=== PATIENT | male | born 1950 | race African-American/Black ===

== ENCOUNTER 2024-01-17 21:25 | Inpatient (IN) | payer MEDICARE, MEDICAID ==
[~2024-01-17] VITALS: Ht 152.4 cm; Wt 70.7 kg
[2024-01-17 22:48] LABS: BASOPHILS % (AUTO) 0.2 % (0.0-2.0); HEMATOCRIT 38.9 % (41-53); HEMOGLOBIN 12.7 g/dL (13.5-17.5); LYMPHOCYTES # (AUTO) 1.9 K/uL (1.0-4.8); MEAN CORPUSCULAR HEMOGLOBIN 29.6 pg (26.0-34.0); MEAN CORPUSCULAR HGB CONC 32.7 G/dL (31.0-37.0); MEAN CORPUSCULAR VOLUME 91 fL (80-100); MONOCYTES # (AUTO) 0.7 K/uL (0.1-1.0); MONOCYTES % (AUTO) 8.2 % (2.0-9.0); NEUTROPHILS % (AUTO) 67.6 % (40.0-70.0); PLATELET COUNT (AUTO) 319 K/uL (150-450); RED BLOOD CELL COUNT(AUTO) 4.29 MIL/uL (4.50-5.90); RED CELL DISTRIBUTION WIDTH 13.8 % (11.5-14.5); WHITE BLOOD COUNT (AUTO) 8.8 K/uL (4.5-11.0)
[2024-01-17 23:08] LABS: ANION GAP 11 mmol/L (8-16); CALCIUM, TOTAL 8.9 mg/dL (8.8-10.5); CARBON DIOXIDE 27 mmol/L (22-29); CHLORIDE 102 mmol/L (98-107); CREATININE 1.02 mg/dL (0.60-1.30); GLOMERULAR FILTR. RATE CALC > 60 mL/min (>60); GLUCOSE,RANDOM 145 mg/dL (70-110); POTASSIUM 5.1 mmol/L (3.5-5.1); SODIUM SERUM 140 mmol/L (136-145); UREA NITROGEN, BLOOD 18 mg/dL (7-18)
[2024-01-17 23:21] LABS: ALCOHOL, BLOOD (SERUM) < 3 mg/dL (0-10)
[2024-01-18 05:33] LABS: COVID AG,FIA SOURCE NASAL SWAB
[2024-01-18 05:52] LABS: SARS-COV2 (COVID) ANTIGEN,FIA Negative (Negative)
[2024-01-18 08:23] LABS: APPEARANCE,URINE CLEAR (CLEAR); BILIRUBIN,URINE NEGATIVE (NEGATIVE); COLOR,URINE LIGHT YELLOW (YELLOW); GLUCOSE, URINE (UA) NEGATIVE (NEGATIVE); KETONES,URINE NEGATIVE (NEGATIVE); LEUKOCYTE ESTERASE ,URINE NEGATIVE (NEGATIVE); NITRATE,URINE NEGATIVE (NEGATIVE); OCCULT BLOOD,URINE NEGATIVE (NEGATIVE); PROTEIN,URINE TRACE mg/dL (NEGATIVE); SPECIFIC GRAVITIY, URINE 1.019 (1.003-1.030); UROBILINOGEN,URINE <=1.0 mg/dL (<=1.0)
[2024-01-18 08:32] LABS: ALCOHOL, URINE DRUG SCREEN NEGATIVE (NEGATIVE); AMPHET/METH SCREEN,URINE NEGATIVE (NEGATIVE); BARBITURATE SCREEN, URINE NEGATIVE (NEGATIVE); BENZODIAZEPINES SCREEN,URINE NEGATIVE (NEGATIVE); CANNABINOID SCREEN,URINE NEGATIVE (NEGATIVE); COCAINE SCREEN,URINE NEGATIVE (NEGATIVE); METHADONE SCREEN, URINE NEGATIVE (NEGATIVE); OPIATE SCREEN,URINE NEGATIVE (NEGATIVE); PHENCYCLIDINE SCREEN,URINE NEGATIVE (NEGATIVE)
[2024-01-18] MEDS: LORazepam 2 MG TABLET PO PRN (16:12)
[2024-01-18] MEDS: HALOPERIDOL 5 MG TABLET PO PRN (16:12)
[2024-01-18 19:52] VITALS: O2SAT 98
[2024-01-19] VITALS: BP 114/57; PULSE 58; RESP 18; TEMP 98.1; O2SAT 100
[2024-01-19 09:29] VITALS: BP 138/73; PULSE 72; RESP 19; TEMP 97; O2SAT 99
[2024-01-19] MEDS ORDERED: CHLO100T36 PO (16:54)
[2024-01-19] MEDS ORDERED: CHLO50TA53 PO (16:54)
[2024-01-19] MEDS ORDERED: DOXA1TAB2 PO (16:55)
[2024-01-19] MEDS: ChlorproMAZINE HCL 100 MG TABLET PO SCH (20:51)
[2024-01-19 21:04] VITALS: BP 142/72; PULSE 74; RESP 18; TEMP 98.1; O2SAT 99
[2024-01-20 09:37] VITALS: BP 131/76; PULSE 85; TEMP 97.3
[2024-01-20] MEDS: ChlorproMAZINE HCL 50 MG TABLET PO SCH (09:44)
[2024-01-20] MEDS: ZOLPIDEM TARTRATE 10 MG TABLET PO PRN (21:17)
[2024-01-20 22:13] VITALS: BP 139/74; PULSE 84; RESP 18; O2SAT 98
[2024-01-21] MEDS: ASPIRIN 81 MG DR TABLET PO SCH (10:49)
[2024-01-21] MEDS: LISINOPRIL 10 MG TABLET PO SCH (10:49)
[2024-01-21] MEDS: PEG 400/HYPROMELLOSE/GLYCERIN 15 ML OPHTHALMIC SOLUTION OU PRN (11:29)
[2024-01-21 17:46] LABS: GLUCOMETER DEV NAME(LOC) 3E.I 2; GLUCOSE,POINT OF CARE 190 MG/DL (70-110)
[2024-01-21 17:50] VITALS: BP 147/76; PULSE 69; RESP 18; TEMP 97.3; O2SAT 96
[2024-01-21 20:00] VITALS: BP 105/60; PULSE 79; RESP 18; TEMP 97.8; O2SAT 97
[2024-01-21] MEDS: SIMVASTATIN 20 MG TABLET PO SCH (22:14)
[2024-01-22] MEDS: MetFORMIN HCL 500 MG TABLET PO SCH (06:53)
[2024-01-22 06:55] LABS: GLUCOMETER DEV NAME(LOC) 3E.I 2; GLUCOSE,POINT OF CARE 166 MG/DL (70-110)
[2024-01-22] MEDS: ALFUZOSIN HCL 10 MG ER TABLET PO SCH (08:15)
[2024-01-22 10:40] VITALS: BP 160/80; PULSE 75; RESP 18; TEMP 97.3; O2SAT 98
[2024-01-22 17:31] LABS: GLUCOMETER DEV NAME(LOC) 3E.I 2; GLUCOSE,POINT OF CARE 236 MG/DL (70-110)
[2024-01-22 21:30] VITALS: BP 136/79; PULSE 83; RESP 18; TEMP 97.5; O2SAT 95
[2024-01-23 06:10] LABS: GLUCOMETER DEV NAME(LOC) 3E.I 2; GLUCOSE,POINT OF CARE 209 MG/DL (70-110)
[2024-01-23 11:20] LABS: GLUCOMETER DEV NAME(LOC) 3E.I 2; GLUCOSE,POINT OF CARE 269 MG/DL (70-110)
[2024-01-23 11:29] VITALS: BP 134/80; PULSE 80; RESP 18; TEMP 97.4; O2SAT 98
[2024-01-23 16:56] LABS: GLUCOMETER DEV NAME(LOC) 3E.I 2; GLUCOSE,POINT OF CARE 227 MG/DL (70-110)
[2024-01-23 22:36] VITALS: BP 122/58; PULSE 84; RESP 18; TEMP 98.2; O2SAT 97
[2024-01-24 05:36] LABS: GLUCOMETER DEV NAME(LOC) 3E.I 2; GLUCOSE,POINT OF CARE 181 MG/DL (70-110)
[2024-01-24 12:06] VITALS: BP 147/88; PULSE 88; RESP 18; TEMP 98.2
[2024-01-24 17:40] LABS: GLUCOMETER DEV NAME(LOC) 3E.I 2; GLUCOSE,POINT OF CARE 228 MG/DL (70-110)
[2024-01-24] MEDS: ETHYL ALCOHOL 62% ANTISEPTIC NASAL SANITIZER 0.6 ML AMPUL NASAL SCH (21:48)
[2024-01-24 22:27] VITALS: BP 99/52; PULSE 76; RESP 18; TEMP 97; O2SAT 97
[2024-01-25 07:05] LABS: GLUCOMETER DEV NAME(LOC) 3E.I 2; GLUCOSE,POINT OF CARE 141 MG/DL (70-110)
[2024-01-25 10:37] VITALS: BP 128/61; PULSE 74; RESP 18; TEMP 97.9; O2SAT 100
[2024-01-25 17:20] LABS: GLUCOMETER DEV NAME(LOC) 3E.I 2; GLUCOSE,POINT OF CARE 221 MG/DL (70-110)
[2024-01-25 20:31] VITALS: BP 11/69; PULSE 86; RESP 17; TEMP 97.6; O2SAT 97
[2024-01-26 06:45] LABS: GLUCOMETER DEV NAME(LOC) 3E.I 2; GLUCOSE,POINT OF CARE 198 MG/DL (70-110)
[2024-01-26 10:10] VITALS: BP 147/76; PULSE 90; RESP 16; TEMP 97.3; O2SAT 100
[2024-01-26 17:16] LABS: GLUCOMETER DEV NAME(LOC) 3E.I 2; GLUCOSE,POINT OF CARE 153 MG/DL (70-110)
[2024-01-26 21:50] VITALS: BP 153/75; PULSE 89; RESP 18; TEMP 96.5; O2SAT 97
[2024-01-27 07:16] LABS: GLUCOMETER DEV NAME(LOC) 3E.I 2; GLUCOSE,POINT OF CARE 153 MG/DL (70-110)
[2024-01-27 09:43] VITALS: BP 153/75; PULSE 82; RESP 18; TEMP 97.6; O2SAT 99
[2024-01-27 09:53] LABS: HEMOGLOBIN A1C 7.2 % (3.8-5.6)
[2024-01-27 09:56] LABS: CHOL/HDL RATIO 2.7 (4.2-7.3)
[2024-01-27 17:36] LABS: GLUCOMETER DEV NAME(LOC) 3E.I 2; GLUCOSE,POINT OF CARE 194 MG/DL (70-110)
[2024-01-27 22:00] VITALS: BP 143/73; PULSE 82; RESP 19; TEMP 97.1; O2SAT 98
[2024-01-28 06:46] LABS: GLUCOMETER DEV NAME(LOC) 3E.I 2; GLUCOSE,POINT OF CARE 169 MG/DL (70-110)
[2024-01-28 09:23] VITALS: BP 128/63; PULSE 75; RESP 18; TEMP 97.6; O2SAT 99
[2024-01-28 17:41] LABS: GLUCOMETER DEV NAME(LOC) 3E.I 2; GLUCOSE,POINT OF CARE 166 MG/DL (70-110)
[2024-01-28 21:46] VITALS: BP 139/76; PULSE 89; RESP 18; TEMP 97.9; O2SAT 99
[2024-01-29 06:21] LABS: GLUCOMETER DEV NAME(LOC) 3E.I 2; GLUCOSE,POINT OF CARE 168 MG/DL (70-110)
[2024-01-29] MEDS ORDERED: ONDANSETRON 4 MG TABLET PO PRN (09:15)
[2024-01-29] MEDS ORDERED: PETROLATUM,WHITE 28 GM JELLY TP PRN (09:15)
[2024-01-29] MEDS ORDERED: ALBUTEROL SULFATE HFA 90 MCG/PUFF 8 GM INHALER IH PRN (09:15)
[2024-01-29] MEDS ORDERED: NICOTINE 14 MG/24 HOUR PATCH TD PRN (09:15)
[2024-01-29] MEDS ORDERED: LOPERAMIDE HCL 2 MG CAPSULE PO PRN (09:15)
[2024-01-29] MEDS ORDERED: CloNIDine HCL 0.1 MG TABLET PO PRN (09:15)
[2024-01-29] MEDS ORDERED: GuaiFENesin/D-METHORPHAN [SUGAR-FREE] 200-20MG/10 ML SYRUP UDCUP PO PRN (09:15)
[2024-01-29 09:39] VITALS: BP 130/80; PULSE 103; RESP 16; TEMP 97.8; O2SAT 98
[2024-01-29] MEDS: MAGNESIUM HYDROXIDE SUSPENSION 30 ML UDCUP PO PRN (09:40)
[2024-01-29 13:31] VITALS: BP 102/65; PULSE 85; RESP 18; TEMP 97.6; O2SAT 97
[2024-01-29] MEDS: ACETAMINOPHEN 325 MG TABLET PO PRN (13:31)
[2024-01-29 17:11] LABS: GLUCOMETER DEV NAME(LOC) 3E.I 2; GLUCOSE,POINT OF CARE 299 MG/DL (70-110)
[2024-01-29 22:27] VITALS: BP 149/63; PULSE 80; RESP 20; TEMP 97.2; O2SAT 98
[2024-01-30 06:06] LABS: GLUCOMETER DEV NAME(LOC) 3E.I 2; GLUCOSE,POINT OF CARE 169 MG/DL (70-110)
[2024-01-30 08:03] LABS: BASOPHILS % (AUTO) 1.3 % (0.0-2.0); EOSINOPHILS % (AUTO) 3.8 % (1.0-6.0); HEMATOCRIT 36.2 % (41-53); LYMPHOCYTES # (AUTO) 1.7 K/uL (1.0-4.8); MEAN CORPUSCULAR HEMOGLOBIN 29.8 pg (26.0-34.0); MEAN CORPUSCULAR HGB CONC 33.2 G/dL (31.0-37.0); MEAN CORPUSCULAR VOLUME 90 fL (80-100); MONOCYTES # (AUTO) 0.5 K/uL (0.1-1.0); MONOCYTES % (AUTO) 7.6 % (2.0-9.0); NEUTROPHILS # (AUTO) 4.4 K/uL (1.8-7.7); NEUTROPHILS % (AUTO) 63.3 % (40.0-70.0); PLATELET COUNT (AUTO) 300 K/uL (150-450); RED BLOOD CELL COUNT(AUTO) 4.04 MIL/uL (4.50-5.90); RED CELL DISTRIBUTION WIDTH 13.3 % (11.5-14.5)
[2024-01-30 08:29] LABS: HEMOGLOBIN A1C 7.5 % (3.8-5.6)
[2024-01-30 08:40] VITALS: BP 139/69; PULSE 75; RESP 17; TEMP 97.9; O2SAT 100
[2024-01-30 08:51] LABS: ALANINE AMINOTRANSFERASE 203 U/L (12-78); ALBUMIN 3.2 g/dL (3.4-5.0); ALKALINE PHOSPHATASE 145 U/L (46-116); ANION GAP 6 mmol/L (8-16); ASPARTATE AMINOTRANSFERASE 42 U/L (15-37); BILIRUBIN,TOTAL 0.3 mg/dL (0.1-1.0); CARBON DIOXIDE 29 mmol/L (22-29); CHLORIDE 101 mmol/L (98-107); CHOL/HDL RATIO 2.4 (4.2-7.3); CHOLESTEROL 154 mg/dL (131-200); CREATININE 0.91 mg/dL (0.60-1.30); GLOMERULAR FILTR. RATE CALC > 60 mL/min (>60); GLUCOSE,RANDOM 219 mg/dL (70-110); HDL CHOLESTEROL 65 mg/dL (40-60); LDL CHOL (CALC.) 83 mg/dL (0-130); POTASSIUM 4.1 mmol/L (3.5-5.1); SODIUM SERUM 136 mmol/L (136-145); THYROID STIMULATING HORMONE 2.71 uIU/mL (0.36-3.74); TOTAL PROTEIN, SERUM 7.4 g/dL (6.4-8.2); TRIGLYCERIDES 29 mg/dL (15-150); UREA NITROGEN, BLOOD 17 mg/dL (7-18)
[2024-01-30 17:05] LABS: GLUCOMETER DEV NAME(LOC) 3E.I 2; GLUCOSE,POINT OF CARE 192 MG/DL (70-110)
[2024-01-30 20:08] VITALS: BP 142/76; PULSE 95; RESP 17; TEMP 97.8; O2SAT 97
[2024-01-31 06:26] LABS: GLUCOMETER DEV NAME(LOC) 3E.I 2; GLUCOSE,POINT OF CARE 179 MG/DL (70-110)
[2024-01-31 10:14] VITALS: BP 168/83; PULSE 89; RESP 18; TEMP 97.9; O2SAT 99
[2024-01-31 12:00] LABS: GLUCOMETER DEV NAME(LOC) 3E.I 2; GLUCOSE,POINT OF CARE 204 MG/DL (70-110)
[2024-01-31 15:53] VITALS: BP 149/79; PULSE 93; RESP 18; TEMP 98; O2SAT 99
[2024-01-31] MEDS: IBUPROFEN 400 MG TABLET PO PRN (15:53)
[2024-01-31 17:01] LABS: GLUCOMETER DEV NAME(LOC) 3E.I 2; GLUCOSE,POINT OF CARE 271 MG/DL (70-110)
[2024-01-31 20:18] VITALS: BP 118/68; PULSE 78; RESP 17; TEMP 98.1; O2SAT 98
[2024-02-01 06:31] LABS: GLUCOMETER DEV NAME(LOC) 3E.I 2; GLUCOSE,POINT OF CARE 121 MG/DL (70-110)
[2024-02-01 08:50] VITALS: BP 112/66; PULSE 74; RESP 18; TEMP 97.2; O2SAT 99
[2024-02-01 19:31] LABS: GLUCOMETER DEV NAME(LOC) 3E.I 2; GLUCOSE,POINT OF CARE 208 MG/DL (70-110)
[2024-02-01 21:09] VITALS: BP 102/62; PULSE 84; RESP 16; TEMP 97.3; O2SAT 99
[2024-02-02 06:01] LABS: GLUCOMETER DEV NAME(LOC) 3E.I 2; GLUCOSE,POINT OF CARE 144 MG/DL (70-110)
[2024-02-02 09:12] VITALS: BP 137/82; PULSE 86; RESP 18; TEMP 97.6; O2SAT 97
[2024-02-02] MEDS: DOCUSATE SODIUM 100 MG CAPSULE PO PRN (15:55)
[2024-02-02 17:25] LABS: GLUCOMETER DEV NAME(LOC) 3E.I 2; GLUCOSE,POINT OF CARE 240 MG/DL (70-110)
[2024-02-02 22:21] VITALS: BP 101/61; PULSE 56; RESP 18; TEMP 97.8; O2SAT 96
[2024-02-03 06:50] LABS: GLUCOMETER DEV NAME(LOC) 3E.I 2; GLUCOSE,POINT OF CARE 142 MG/DL (70-110)
[2024-02-03 08:00] VITALS: BP 113/61; PULSE 79; RESP 18; TEMP 96.9
[2024-02-03 17:00] LABS: GLUCOMETER DEV NAME(LOC) 3E.I 2; GLUCOSE,POINT OF CARE 238 MG/DL (70-110)
[2024-02-03 20:56] VITALS: BP 143/81; PULSE 89; RESP 18; TEMP 97; O2SAT 89
[2024-02-04 06:11] LABS: GLUCOMETER DEV NAME(LOC) 3E.I 2; GLUCOSE,POINT OF CARE 175 MG/DL (70-110)
[2024-02-04 09:26] VITALS: BP 156/75; PULSE 66; RESP 16; TEMP 97.9; O2SAT 99
[2024-02-04] MEDS: MAG HYDROX/ALUMINUM HYD/SIMETH ES 30 ML SUSPENSION UDCUP PO PRN (15:30)
[2024-02-04 16:31] LABS: GLUCOMETER DEV NAME(LOC) 3E.I 2; GLUCOSE,POINT OF CARE 163 MG/DL (70-110)
[2024-02-04 21:04] VITALS: BP 132/83; PULSE 84; RESP 18; TEMP 97.6
[2024-02-05 06:26] LABS: GLUCOMETER DEV NAME(LOC) 3E.I 2; GLUCOSE,POINT OF CARE 150 MG/DL (70-110)
[2024-02-05 08:52] VITALS: BP 124/66; PULSE 68; RESP 17; TEMP 97.7; O2SAT 98
[2024-02-05 17:26] LABS: GLUCOMETER DEV NAME(LOC) 3E.I 2; GLUCOSE,POINT OF CARE 304 MG/DL (70-110)
[2024-02-05 20:50] LABS: GLUCOMETER DEV NAME(LOC) 3E.I 2; GLUCOSE,POINT OF CARE 169 MG/DL (70-110)
[2024-02-05 21:16] VITALS: BP 110/57; PULSE 71; RESP 18; TEMP 97.4; O2SAT 98
[2024-02-06 08:32] VITALS: BP 148/78; PULSE 75; RESP 18; TEMP 96.9; O2SAT 98
[2024-02-06 17:30] LABS: GLUCOMETER DEV NAME(LOC) 3E.I 2; GLUCOSE,POINT OF CARE 317 MG/DL (70-110)
[2024-02-06 22:24] VITALS: BP 129/71; PULSE 85; RESP 18; TEMP 98; O2SAT 95
[2024-02-07 06:01] LABS: GLUCOMETER DEV NAME(LOC) 3E.I 2; GLUCOSE,POINT OF CARE 158 MG/DL (70-110)
[2024-02-07 09:48] VITALS: BP 126/69; PULSE 80; RESP 18; TEMP 98.1; O2SAT 98
[2024-02-07 17:15] LABS: GLUCOMETER DEV NAME(LOC) 3E.I 2; GLUCOSE,POINT OF CARE 211 MG/DL (70-110)
[2024-02-07 21:23] VITALS: BP 147/87; PULSE 79; RESP 18; TEMP 98.2; O2SAT 96
[2024-02-08 06:01] LABS: GLUCOMETER DEV NAME(LOC) 3E.I 2; GLUCOSE,POINT OF CARE 161 MG/DL (70-110)
[2024-02-08 10:29] VITALS: BP 138/80; PULSE 77; RESP 18; TEMP 98; O2SAT 98
[2024-02-08 10:48] VITALS: BP 137/80; PULSE 77; RESP 17; TEMP 98.1; O2SAT 99
[2024-02-08 16:26] LABS: GLUCOMETER DEV NAME(LOC) 3E.I 2; GLUCOSE,POINT OF CARE 241 MG/DL (70-110)
[2024-02-08 21:22] VITALS: BP 100/60; PULSE 86; RESP 18; TEMP 98.1; O2SAT 98
[2024-02-09 06:25] LABS: GLUCOMETER DEV NAME(LOC) 3E.I 2; GLUCOSE,POINT OF CARE 164 MG/DL (70-110)
[2024-02-09 08:22] VITALS: BP 120/64; PULSE 61; RESP 18; TEMP 98.3; O2SAT 100
[2024-02-09 17:46] LABS: GLUCOMETER DEV NAME(LOC) 3E.I 2; GLUCOSE,POINT OF CARE 246 MG/DL (70-110)
[2024-02-09 20:51] LABS: GLUCOMETER DEV NAME(LOC) 3E.I 2; GLUCOSE,POINT OF CARE 176 MG/DL (70-110)
[2024-02-09 21:51] VITALS: BP 142/69; PULSE 80; RESP 18; TEMP 98; O2SAT 96
[2024-02-10 05:45] LABS: GLUCOMETER DEV NAME(LOC) 3E.I 2; GLUCOSE,POINT OF CARE 161 MG/DL (70-110)
[2024-02-10 10:16] VITALS: BP 140/77; PULSE 71; RESP 19; TEMP 98.1; O2SAT 100
[2024-02-10 18:16] LABS: GLUCOMETER DEV NAME(LOC) 3E.I 2; GLUCOSE,POINT OF CARE 249 MG/DL (70-110)
[2024-02-10 22:00] VITALS: BP 147/79; PULSE 75; RESP 17; TEMP 97.1; O2SAT 98
[2024-02-11 10:33] VITALS: BP 151/70; PULSE 75; RESP 18; TEMP 98.6; O2SAT 100
[2024-02-11 16:56] LABS: GLUCOMETER DEV NAME(LOC) 3E.I 2; GLUCOSE,POINT OF CARE 193 MG/DL (70-110)
[2024-02-11 20:50] LABS: GLUCOMETER DEV NAME(LOC) 3E.I 2; GLUCOSE,POINT OF CARE 232 MG/DL (70-110)
[2024-02-11 22:00] VITALS: BP 154/83; PULSE 18; RESP 18; TEMP 97.6; O2SAT 98
[2024-02-12 06:11] LABS: GLUCOMETER DEV NAME(LOC) 3E.I 2; GLUCOSE,POINT OF CARE 173 MG/DL (70-110)
[2024-02-12 09:29] VITALS: BP 123/67; PULSE 78; RESP 19; TEMP 97.5; O2SAT 100
[2024-02-12 17:41] LABS: GLUCOMETER DEV NAME(LOC) 3E.I 2; GLUCOSE,POINT OF CARE 220 MG/DL (70-110)
[2024-02-12 21:16] LABS: GLUCOMETER DEV NAME(LOC) 3E.I 2; GLUCOSE,POINT OF CARE 259 MG/DL (70-110)
[2024-02-12 22:13] VITALS: BP 108/57; PULSE 73; RESP 18; TEMP 97.6; O2SAT 100
[2024-02-13 06:15] LABS: GLUCOMETER DEV NAME(LOC) 3E.I 2; GLUCOSE,POINT OF CARE 157 MG/DL (70-110)
[2024-02-13 08:00] VITALS: BP 121/64; PULSE 77; RESP 18; TEMP 97.2; O2SAT 97
[2024-02-13 16:41] LABS: GLUCOMETER DEV NAME(LOC) 3E.I 2; GLUCOSE,POINT OF CARE 138 MG/DL (70-110)
[2024-02-13 20:44] VITALS: BP 122/71; PULSE 73; RESP 18; TEMP 98.3; O2SAT 98
[2024-02-14 06:16] LABS: GLUCOMETER DEV NAME(LOC) 3E.I 2; GLUCOSE,POINT OF CARE 147 MG/DL (70-110)
[2024-02-14 08:00] VITALS: BP 146/69; PULSE 79; RESP 18; TEMP 96.4
[2024-02-14 17:30] LABS: GLUCOMETER DEV NAME(LOC) 3E.I 2; GLUCOSE,POINT OF CARE 244 MG/DL (70-110)
[2024-02-14 20:45] VITALS: BP 114/55; PULSE 74; RESP 18; TEMP 97.1; O2SAT 98
[2024-02-15 05:46] LABS: GLUCOMETER DEV NAME(LOC) 3E.I 2; GLUCOSE,POINT OF CARE 156 MG/DL (70-110)
[2024-02-15 09:09] VITALS: BP 128/61; PULSE 86; RESP 18; TEMP 98; O2SAT 98
[2024-02-15 17:51] LABS: GLUCOMETER DEV NAME(LOC) 3E.I 2; GLUCOSE,POINT OF CARE 209 MG/DL (70-110)
[2024-02-15 21:18] LABS: APPEARANCE,URINE CLEAR (CLEAR); BILIRUBIN,URINE NEGATIVE (NEGATIVE); COLOR,URINE LIGHT YELLOW (YELLOW); GLUCOSE, URINE (UA) 300-500 mg/dL (NEGATIVE); KETONES,URINE NEGATIVE (NEGATIVE); LEUKOCYTE ESTERASE ,URINE NEGATIVE (NEGATIVE); NITRATE,URINE NEGATIVE (NEGATIVE); OCCULT BLOOD,URINE NEGATIVE (NEGATIVE); PROTEIN,URINE NEGATIVE (NEGATIVE); SPECIFIC GRAVITIY, URINE 1.013 (1.003-1.030); UROBILINOGEN,URINE <=1.0 mg/dL (<=1.0)
[2024-02-15 21:25] VITALS: BP 112/60; PULSE 76; RESP 18; TEMP 98.2; O2SAT 98
[2024-02-15 21:43] LABS: BACTERIA,URINE Rare /HPF (None Seen); RBC,URINE 0-2 /HPF (0-2); SQUAMOUS EPITHELIAL CELL,UR Few /LPF (None Seen); WBC,URINE 0-2 /HPF (0-5)
[2024-02-16 05:46] LABS: GLUCOMETER DEV NAME(LOC) 3E.I 2; GLUCOSE,POINT OF CARE 170 MG/DL (70-110)
[2024-02-16 09:55] VITALS: BP 135/72; PULSE 77; RESP 18; TEMP 97.2; O2SAT 99
[2024-02-16 16:36] LABS: GLUCOMETER DEV NAME(LOC) 3E.I 2; GLUCOSE,POINT OF CARE 178 MG/DL (70-110)
[2024-02-16 21:42] VITALS: BP 137/82; PULSE 78; RESP 18; TEMP 98.1; O2SAT 97
[2024-02-17 06:50] LABS: GLUCOMETER DEV NAME(LOC) 3E.I 2; GLUCOSE,POINT OF CARE 147 MG/DL (70-110)
[2024-02-17 17:35] LABS: GLUCOMETER DEV NAME(LOC) 3E.I 2; GLUCOSE,POINT OF CARE 160 MG/DL (70-110)
[2024-02-17 21:51] VITALS: BP 135/65; PULSE 78; RESP 18; TEMP 97.9; O2SAT 98
[2024-02-18 06:50] LABS: GLUCOMETER DEV NAME(LOC) 3E.I 2; GLUCOSE,POINT OF CARE 160 MG/DL (70-110)
[2024-02-18 09:01] VITALS: BP 123/63; PULSE 79; RESP 17; TEMP 97.9; O2SAT 96
[2024-02-18 17:01] LABS: GLUCOMETER DEV NAME(LOC) 3E.I 2; GLUCOSE,POINT OF CARE 251 MG/DL (70-110)
[2024-02-18 21:37] VITALS: BP 132/81; PULSE 76; RESP 18; TEMP 98.1; O2SAT 97
[2024-02-19 05:51] LABS: GLUCOMETER DEV NAME(LOC) 3E.I 2; GLUCOSE,POINT OF CARE 161 MG/DL (70-110)
[2024-02-19 10:22] VITALS: BP 117/69; PULSE 80; RESP 18; TEMP 97.5; O2SAT 99
[2024-02-19 16:56] LABS: GLUCOMETER DEV NAME(LOC) 3E.I 2; GLUCOSE,POINT OF CARE 201 MG/DL (70-110)
[2024-02-19 22:22] VITALS: BP 166/78; PULSE 73; RESP 18; TEMP 97.7; O2SAT 98
[2024-02-20 06:31] LABS: GLUCOMETER DEV NAME(LOC) 3E.I 2; GLUCOSE,POINT OF CARE 157 MG/DL (70-110)
[2024-02-20 09:36] VITALS: BP 122/65; PULSE 65; RESP 18; TEMP 97.7; O2SAT 99
[2024-02-20 17:15] LABS: GLUCOMETER DEV NAME(LOC) 3E.I 2; GLUCOSE,POINT OF CARE 126 MG/DL (70-110)
[2024-02-20 22:24] VITALS: BP 135/62; PULSE 72; RESP 18; TEMP 97.4; O2SAT 96
[2024-02-20 22:37] VITALS: BP 135/62; PULSE 72; RESP 18; TEMP 97.4; O2SAT 96
[2024-02-21 06:01] LABS: GLUCOMETER DEV NAME(LOC) 3E.I 2; GLUCOSE,POINT OF CARE 149 MG/DL (70-110)
[2024-02-21 09:39] VITALS: BP 148/82; PULSE 84; RESP 18; TEMP 97; O2SAT 99
[2024-02-21 16:36] LABS: GLUCOMETER DEV NAME(LOC) 3E.I 2; GLUCOSE,POINT OF CARE 186 MG/DL (70-110)
[2024-02-21 21:21] VITALS: BP 127/62; PULSE 76; RESP 18; TEMP 98; O2SAT 97
[2024-02-22 06:16] LABS: GLUCOMETER DEV NAME(LOC) 3E.I 2; GLUCOSE,POINT OF CARE 141 MG/DL (70-110)
[2024-02-22 07:03] LABS: EOSINOPHILS % (AUTO) 4.4 % (1.0-6.0); HEMATOCRIT 35.9 % (41-53); HEMOGLOBIN 12.2 g/dL (13.5-17.5); LYMPHOCYTES # (AUTO) 2.1 K/uL (1.0-4.8); LYMPHOCYTES % (AUTO) 33.3 % (22.0-44.0); MEAN CORPUSCULAR HEMOGLOBIN 30.1 pg (26.0-34.0); MEAN CORPUSCULAR HGB CONC 34.1 G/dL (31.0-37.0); MEAN CORPUSCULAR VOLUME 88 fL (80-100); MONOCYTES # (AUTO) 0.5 K/uL (0.1-1.0); MONOCYTES % (AUTO) 8.2 % (2.0-9.0); NEUTROPHILS # (AUTO) 3.3 K/uL (1.8-7.7); NEUTROPHILS % (AUTO) 53.1 % (40.0-70.0); PLATELET COUNT (AUTO) 269 K/uL (150-450); RED BLOOD CELL COUNT(AUTO) 4.06 MIL/uL (4.50-5.90); RED CELL DISTRIBUTION WIDTH 13.2 % (11.5-14.5); WHITE BLOOD COUNT (AUTO) 6.3 K/uL (4.5-11.0)
[2024-02-22 07:08] LABS: ANION GAP 8 mmol/L (8-16); CALCIUM, TOTAL 8.6 mg/dL (8.8-10.5); CARBON DIOXIDE 32 mmol/L (22-29); CHLORIDE 102 mmol/L (98-107); CREATININE 0.84 mg/dL (0.60-1.30); GLOMERULAR FILTR. RATE CALC > 60 mL/min (>60); GLUCOSE,RANDOM 134 mg/dL (70-110); POTASSIUM 4.6 mmol/L (3.5-5.1); SODIUM SERUM 142 mmol/L (136-145); UREA NITROGEN, BLOOD 12 mg/dL (7-18)
[2024-02-22 08:51] VITALS: BP 130/69; PULSE 84; RESP 18; O2SAT 99
[2024-02-22 16:51] LABS: GLUCOMETER DEV NAME(LOC) 3E.I 2; GLUCOSE,POINT OF CARE 102 MG/DL (70-110)
[2024-02-22 20:23] VITALS: BP 113/64; PULSE 85; RESP 18; TEMP 97.3; O2SAT 97
[2024-02-23 06:50] LABS: GLUCOMETER DEV NAME(LOC) 3E.I 2; GLUCOSE,POINT OF CARE 131 MG/DL (70-110)
[2024-02-23 08:00] VITALS: BP 157/79; PULSE 77; RESP 16; TEMP 97.9; O2SAT 100
[2024-02-23 16:30] LABS: GLUCOMETER DEV NAME(LOC) 3E.I 2; GLUCOSE,POINT OF CARE 211 MG/DL (70-110)
[2024-02-23 22:10] VITALS: BP 150/75; PULSE 69; RESP 19; TEMP 97.5; O2SAT 98
[2024-02-24 06:15] LABS: GLUCOMETER DEV NAME(LOC) 3E.I 2; GLUCOSE,POINT OF CARE 146 MG/DL (70-110)
[2024-02-24 08:00] VITALS: BP 137/81; PULSE 90; RESP 18; TEMP 98.4; O2SAT 98
[2024-02-24 16:21] LABS: GLUCOMETER DEV NAME(LOC) 3E.I 2; GLUCOSE,POINT OF CARE 155 MG/DL (70-110)
[2024-02-24 21:05] VITALS: BP 130/71; PULSE 76; RESP 18; TEMP 97.8; O2SAT 99
[2024-02-25 06:06] LABS: GLUCOMETER DEV NAME(LOC) 3E.I 2; GLUCOSE,POINT OF CARE 147 MG/DL (70-110)
[2024-02-25 08:30] VITALS: BP 118/69; PULSE 79; RESP 18; TEMP 97.6; O2SAT 100
[2024-02-25 16:50] LABS: GLUCOMETER DEV NAME(LOC) 3E.I 2; GLUCOSE,POINT OF CARE 215 MG/DL (70-110)
[2024-02-25 22:16] VITALS: BP 133/71; PULSE 78; RESP 18; TEMP 97.5; O2SAT 99
[2024-02-26 06:10] LABS: GLUCOMETER DEV NAME(LOC) 3E.I 2; GLUCOSE,POINT OF CARE 147 MG/DL (70-110)
[2024-02-26 09:34] VITALS: BP 134/77; PULSE 95; RESP 18; TEMP 97.4; O2SAT 100
[2024-02-26 15:37] VITALS: BP 131/75; PULSE 76; RESP 17; TEMP 97.6; O2SAT 99
[2024-02-26 17:40] LABS: GLUCOMETER DEV NAME(LOC) 3E.I 2; GLUCOSE,POINT OF CARE 274 MG/DL (70-110)
[2024-02-26 22:20] VITALS: BP 142/79; PULSE 70; RESP 19; TEMP 97.1; O2SAT 97
[2024-02-27 06:20] LABS: GLUCOMETER DEV NAME(LOC) 3E.I 2; GLUCOSE,POINT OF CARE 122 MG/DL (70-110)
[2024-02-27 10:58] VITALS: BP 146/71; PULSE 78; RESP 18; TEMP 98; O2SAT 98
[2024-02-27 16:41] LABS: GLUCOMETER DEV NAME(LOC) 3E.I 2; GLUCOSE,POINT OF CARE 128 MG/DL (70-110)
[2024-02-27 21:08] VITALS: BP 119/65; PULSE 90; RESP 18; TEMP 97.6; O2SAT 97
[2024-02-28 05:50] LABS: GLUCOMETER DEV NAME(LOC) 3E.I 2; GLUCOSE,POINT OF CARE 137 MG/DL (70-110)
[2024-02-28 09:39] VITALS: BP 103/56; PULSE 90; RESP 19; TEMP 97.4; O2SAT 100
[2024-02-28 16:50] LABS: GLUCOMETER DEV NAME(LOC) 3E.I 2; GLUCOSE,POINT OF CARE 254 MG/DL (70-110)
[2024-02-28 20:37] VITALS: BP 109/68; PULSE 74; RESP 18; TEMP 98.1; O2SAT 98
[2024-02-29 05:41] LABS: GLUCOMETER DEV NAME(LOC) 3E.I 2; GLUCOSE,POINT OF CARE 135 MG/DL (70-110)
[2024-02-29 12:28] VITALS: BP 132/71; PULSE 83; RESP 18; TEMP 97.5; O2SAT 100
[2024-02-29 16:26] LABS: GLUCOMETER DEV NAME(LOC) 3E.I 2; GLUCOSE,POINT OF CARE 114 MG/DL (70-110)
[2024-02-29 21:10] VITALS: BP 134/59; PULSE 73; RESP 18; TEMP 97; O2SAT 98
[2024-03-01 06:20] LABS: GLUCOMETER DEV NAME(LOC) 3E.I 2; GLUCOSE,POINT OF CARE 137 MG/DL (70-110)
[2024-03-01 08:26] VITALS: BP 126/60; PULSE 71; RESP 19; TEMP 97.7; O2SAT 95
[2024-03-01 17:35] LABS: GLUCOMETER DEV NAME(LOC) 3E.I 2; GLUCOSE,POINT OF CARE 223 MG/DL (70-110)
[2024-03-01 20:30] VITALS: BP 157/73; PULSE 75; RESP 19; TEMP 98.1; O2SAT 98
[2024-03-02 05:40] LABS: GLUCOMETER DEV NAME(LOC) 3E.I 2; GLUCOSE,POINT OF CARE 143 MG/DL (70-110)
[2024-03-02 09:40] VITALS: BP 132/76; PULSE 82; RESP 18; TEMP 97.6; O2SAT 98
[2024-03-02 16:56] LABS: GLUCOMETER DEV NAME(LOC) 3E.I 2; GLUCOSE,POINT OF CARE 132 MG/DL (70-110)
[2024-03-02 21:16] VITALS: BP 142/71; PULSE 80; RESP 18; TEMP 97.5
[2024-03-03 05:35] LABS: GLUCOMETER DEV NAME(LOC) 3E.I 2; GLUCOSE,POINT OF CARE 125 MG/DL (70-110)
[2024-03-03 09:00] VITALS: BP 138/64; RESP 18; TEMP 97.3
[2024-03-03 17:16] LABS: GLUCOMETER DEV NAME(LOC) 3E.I 2; GLUCOSE,POINT OF CARE 183 MG/DL (70-110)
[2024-03-03 20:11] VITALS: BP 143/77; PULSE 72; RESP 19; TEMP 97.7
[2024-03-04 07:00] LABS: GLUCOMETER DEV NAME(LOC) 3E.I 2; GLUCOSE,POINT OF CARE 139 MG/DL (70-110)
[2024-03-04 10:26] VITALS: BP 119/64; PULSE 71; RESP 19; TEMP 97.5; O2SAT 97
[2024-03-04 16:45] LABS: GLUCOMETER DEV NAME(LOC) 3E.I 2; GLUCOSE,POINT OF CARE 207 MG/DL (70-110)
[2024-03-04 22:26] VITALS: BP 112/62; PULSE 72; RESP 18; TEMP 98; O2SAT 98
[2024-03-05 06:45] LABS: GLUCOMETER DEV NAME(LOC) 3E.I 2; GLUCOSE,POINT OF CARE 149 MG/DL (70-110)
[2024-03-05 08:30] VITALS: BP 116/58; PULSE 71; RESP 18; TEMP 97.3; O2SAT 94
[2024-03-05 17:01] LABS: GLUCOMETER DEV NAME(LOC) 3E.I 2; GLUCOSE,POINT OF CARE 150 MG/DL (70-110)
[2024-03-05 20:45] VITALS: BP 112/62; PULSE 77; RESP 18; TEMP 97.9; O2SAT 96
[2024-03-06 06:36] LABS: GLUCOMETER DEV NAME(LOC) 3E.I 2; GLUCOSE,POINT OF CARE 160 MG/DL (70-110)
[2024-03-06 09:00] VITALS: BP 106/59; PULSE 78; RESP 18; TEMP 97.1; O2SAT 97
[2024-03-06 17:01] LABS: GLUCOMETER DEV NAME(LOC) 3E.I 2; GLUCOSE,POINT OF CARE 201 MG/DL (70-110)
[2024-03-06 21:30] VITALS: BP 102/60; PULSE 76; RESP 19; TEMP 97.4; O2SAT 97
[2024-03-07 05:41] LABS: GLUCOMETER DEV NAME(LOC) 3E.I 2; GLUCOSE,POINT OF CARE 137 MG/DL (70-110)
[2024-03-07 09:13] VITALS: BP 139/72; PULSE 79; RESP 18; TEMP 97.3; O2SAT 97
[2024-03-07 17:21] LABS: GLUCOMETER DEV NAME(LOC) 3E.I 2; GLUCOSE,POINT OF CARE 192 MG/DL (70-110)
[2024-03-07 20:43] VITALS: BP_SYST 111; BP_SYST 116; BP_DIAS 69; BP_DIAS 71; PULSE 68; PULSE 83; RESP 18; RESP 19; TEMP 97.7; TEMP 97.8; O2SAT 97
[2024-03-08 05:56] LABS: GLUCOMETER DEV NAME(LOC) 3E.I 2; GLUCOSE,POINT OF CARE 180 MG/DL (70-110)
[2024-03-08 08:22] VITALS: BP 155/83; PULSE 76; RESP 18; TEMP 97.5; O2SAT 97
[2024-03-08 16:31] LABS: GLUCOMETER DEV NAME(LOC) 3E.I 2; GLUCOSE,POINT OF CARE 182 MG/DL (70-110)
[2024-03-08 21:11] VITALS: BP 123/61; PULSE 69; RESP 20; TEMP 97.3; O2SAT 98
[2024-03-09 06:11] LABS: GLUCOMETER DEV NAME(LOC) 3E.I 2; GLUCOSE,POINT OF CARE 152 MG/DL (70-110)
[2024-03-09 09:45] VITALS: BP 154/77; PULSE 64; RESP 18; TEMP 97.5; O2SAT 98
[2024-03-09 16:55] LABS: GLUCOMETER DEV NAME(LOC) 3E.I 2; GLUCOSE,POINT OF CARE 189 MG/DL (70-110)
[2024-03-09 23:40] VITALS: BP 124/58; PULSE 75; RESP 18; TEMP 98.3; O2SAT 98
[2024-03-10 05:41] LABS: GLUCOMETER DEV NAME(LOC) 3E.I 2; GLUCOSE,POINT OF CARE 162 MG/DL (70-110)
[2024-03-10 10:34] VITALS: BP 147/74; PULSE 70; RESP 18; TEMP 97.1; O2SAT 99
[2024-03-10 16:51] LABS: GLUCOMETER DEV NAME(LOC) 3E.I 2; GLUCOSE,POINT OF CARE 141 MG/DL (70-110)
[2024-03-10 21:09] VITALS: BP 150/65; PULSE 72; RESP 18; TEMP 97.3; O2SAT 100
[2024-03-11 07:01] LABS: GLUCOMETER DEV NAME(LOC) 3E.I 2; GLUCOSE,POINT OF CARE 148 MG/DL (70-110)
[2024-03-11] MEDS ORDERED: ALFU10TA30 PO (07:52)
[2024-03-11] MEDS ORDERED: LISI-893 PO (07:54)
[2024-03-11] MEDS ORDERED: ASPI-1227 PO (07:54)
[2024-03-11] MEDS ORDERED: METF-1211 PO (07:55)
[2024-03-11 14:43] VITALS: BP 139/76; PULSE 74; RESP 18; TEMP 97.2; O2SAT 100
== END 2024-03-11 11:45 | disposition home or self-care (01) | DRG 750 ==
LOC: EMS 21:25 → 3EI 01-19 00:33
PROVIDERS: ADMIT Psychiatry & Neurology Child & Adolescent Psychiatry; ATTEND Psychiatry & Neurology Child & Adolescent Psychiatry
PROC: GZHZZZZ Group Psychotherapy (ICD-10-PCS; principal; 2024-01-19)
PROC: GZ56ZZZ Individual Psychotherapy, Supportive (ICD-10-PCS; 2024-01-19)
DX: F25.1 Schizoaffective disorder, depressive type (principal); E11.9 Type 2 diabetes mellitus without complications; D64.9 Anemia, unspecified; F41.9 Anxiety disorder, unspecified; E78.5 Hyperlipidemia, unspecified; I10 Essential (primary) hypertension; R32 Unspecified urinary incontinence; K59.00 Constipation, unspecified
CPT/HCPCS: 80048; 80053; 80061; 80307; 81001; 81003; 82962; 83036; 84443; 85025; 87081; 99285; G0480

== ENCOUNTER 2025-03-29 21:54 | Inpatient (IN) | payer MEDICARE, MEDICAID ==
[~2025-03-29] VITALS: Ht 162.6 cm; Wt 71.8 kg
[~2025-03-29 21:54] MED LIST: AEC81 PO; ALFU10TA30 PO; CHLO100T36 PO; CHLO50TA53 PO; LISI-893 PO; METF-1211 PO
[2025-03-29 22:46] LABS: COVID AG,FIA SOURCE NASAL SWAB
[2025-03-29 22:48] LABS: PLATELET COUNT (AUTO) 297 K/uL (150-450); RED BLOOD CELL COUNT(AUTO) 3.62 MIL/uL (4.50-5.90); RED CELL DISTRIBUTION WIDTH 14.5 % (11.5-14.5); WHITE BLOOD COUNT (AUTO) 11.3 K/uL (4.5-11.0)
[2025-03-29 22:58] LABS: CALCIUM, TOTAL 8.9 mg/dL (8.8-10.5); CREATININE 1.30 mg/dL (0.60-1.30); GLOMERULAR FILTR. RATE CALC > 60 mL/min (>60); GLUCOSE,RANDOM 170 mg/dL (70-110); SODIUM SERUM 139 mmol/L (136-145); UREA NITROGEN, BLOOD 27 mg/dL (7-18)
[2025-03-29 23:10] LABS: SARS-COV2 (COVID) ANTIGEN,FIA Negative (Negative)
[2025-03-29 23:41] LABS: APPEARANCE,URINE CLEAR (CLEAR); GLUCOSE, URINE (UA) NEGATIVE (NEGATIVE); LEUKOCYTE ESTERASE ,URINE MODERATE (NEGATIVE); NITRATE,URINE NEGATIVE (NEGATIVE); OCCULT BLOOD,URINE NEGATIVE (NEGATIVE); PH,URINE DRUG SCREEN 5.0 (5.0-8.0); SPECIFIC GRAVITIY, URINE 1.016 (1.003-1.030)
[2025-03-29 23:48] LABS: ALCOHOL, URINE DRUG SCREEN NEGATIVE (NEGATIVE); AMPHET/METH SCREEN,URINE NEGATIVE (NEGATIVE); BARBITURATE SCREEN, URINE NEGATIVE (NEGATIVE); CANNABINOID SCREEN,URINE NEGATIVE (NEGATIVE); COCAINE SCREEN,URINE NEGATIVE (NEGATIVE); METHADONE SCREEN, URINE NEGATIVE (NEGATIVE); SQUAMOUS EPITHELIAL CELL,UR Few /LPF (None Seen)
[2025-03-30] MEDS: ZOLPIDEM TARTRATE 10 MG TABLET PO PRN (02:22)
[2025-03-30 03:08] VITALS: O2SAT 98
[2025-03-30 04:39] VITALS: BP 116/64; PULSE 79; RESP 18; TEMP 97.8; O2SAT 98
[2025-03-30] MEDS ORDERED: BENZOCAINE/MENTHOL [CEPACOL] LOZENGE PO PRN (06:00)
[2025-03-30] MEDS ORDERED: GLUCAGON,HUMAN RECOMBINANT 1 MG VIAL IM PRN (06:00)
[2025-03-30] MEDS ORDERED: MAG HYDROX/ALUMINUM HYD/SIMETH ES 30 ML SUSPENSION UDCUP PO PRN (06:00)
[2025-03-30] MEDS ORDERED: MAGNESIUM HYDROXIDE SUSPENSION 30 ML UDCUP PO PRN (06:00)
[2025-03-30] MEDS ORDERED: DOCUSATE SODIUM 100 MG CAPSULE PO PRN (06:00)
[2025-03-30] MEDS ORDERED: IBUPROFEN 600 MG TABLET PO PRN (06:00)
[2025-03-30] MEDS ORDERED: PETROLATUM,WHITE 28 GM JELLY TP PRN (06:00)
[2025-03-30] MEDS ORDERED: ONDANSETRON 4 MG TABLET PO PRN (06:00)
[2025-03-30] MEDS ORDERED: OMEPRAZOLE 20 MG CAPSULE PO PRN (06:00)
[2025-03-30] MEDS ORDERED: LOPERAMIDE HCL 2 MG CAPSULE PO PRN (06:00)
[2025-03-30] MEDS ORDERED: ACETAMINOPHEN 325 MG TABLET PO PRN (06:00)
[2025-03-30] MEDS ORDERED: ALBUTEROL SULFATE HFA 90 MCG/PUFF 8 GM INHALER IH PRN (06:00)
[2025-03-30] MEDS ORDERED: BACITRACIN 28 GM OINTMENT TP PRN (06:00)
[2025-03-30 06:31] LABS: GLUCOMETER DEV NAME(LOC) BV2X.3; GLUCOSE,POINT OF CARE 91 MG/DL (70-110)
[2025-03-30 09:33] LABS: CHOL/HDL RATIO 2.2 (4.2-7.3); LDL CHOL (CALC.) 63.0 mg/dL (0-130)
[2025-03-30] MEDS: ALFUZOSIN HCL 10 MG ER TABLET PO SCH ×2 (10:00→16:34)
[2025-03-30 11:26] LABS: GLUCOMETER DEV NAME(LOC) BV2X.3; GLUCOSE,POINT OF CARE 93 MG/DL (70-110)
[2025-03-30 12:38] VITALS: BP 137/72; PULSE 80; RESP 18; TEMP 98; O2SAT 98
[2025-03-30 16:35] LABS: GLUCOMETER DEV NAME(LOC) BV2X.3; GLUCOSE,POINT OF CARE 181 MG/DL (70-110)
[2025-03-30] MEDS: INSULIN LISPRO 100 UNITS/ML SQ PRN (16:42)
[2025-03-30 20:22] VITALS: BP 147/76; PULSE 80; RESP 18; TEMP 97.8; O2SAT 99
[2025-03-30] MEDS ORDERED: MELATONIN 5 MG TABLET PO PRN (20:30)
[2025-03-30 20:55] LABS: GLUCOMETER DEV NAME(LOC) BV2X.3; GLUCOSE,POINT OF CARE 112 MG/DL (70-110)
[2025-03-31 06:30] LABS: GLUCOMETER DEV NAME(LOC) BV2X.3; GLUCOSE,POINT OF CARE 105 MG/DL (70-110)
[2025-03-31] MEDS: GABAPENTIN 300 MG CAPSULE PO SCH (08:24)
[2025-03-31] MEDS: SERTRALINE HCL 50 MG TABLET PO SCH (08:24)
[2025-03-31 08:41] LABS: PLATELET COUNT (AUTO) 336 K/uL (150-450); RED BLOOD CELL COUNT(AUTO) 4.04 MIL/uL (4.50-5.90); RED CELL DISTRIBUTION WIDTH 14.4 % (11.5-14.5); WHITE BLOOD COUNT (AUTO) 7.6 K/uL (4.5-11.0)
[2025-03-31 09:07] VITALS: BP 151/81; PULSE 67; RESP 17; TEMP 98.6; O2SAT 96
[2025-03-31 09:13] LABS: ASPARTATE AMINOTRANSFERASE 15 U/L (15-37); CALCIUM, TOTAL 9.2 mg/dL (8.8-10.5); CREATININE 0.74 mg/dL (0.60-1.30); GLOMERULAR FILTR. RATE CALC > 60 mL/min (>60); GLUCOSE,RANDOM 94 mg/dL (70-110); PHOSPHORUS 4.3 mg/dL (2.5-4.9); SODIUM SERUM 141 mmol/L (136-145); TOTAL PROTEIN, SERUM 7.6 g/dL (6.4-8.2); UREA NITROGEN, BLOOD 17 mg/dL (7-18)
[2025-03-31 11:31] LABS: GLUCOMETER DEV NAME(LOC) BV2X.3; GLUCOSE,POINT OF CARE 181 MG/DL (70-110)
[2025-03-31 16:31] LABS: GLUCOMETER DEV NAME(LOC) BV2X.3; GLUCOSE,POINT OF CARE 117 MG/DL (70-110)
[2025-03-31 20:15] VITALS: BP 144/78; PULSE 77; RESP 18; TEMP 97.7; O2SAT 99
[2025-03-31] MEDS: MELATONIN 5 MG TABLET PO SCH (20:30)
[2025-03-31 20:35] LABS: GLUCOMETER DEV NAME(LOC) BV2X.3; GLUCOSE,POINT OF CARE 165 MG/DL (70-110)
[2025-03-31] MEDS ORDERED: MELATONIN 5 MG TABLET PO SCH (21:00)
[2025-04-01 06:31] LABS: GLUCOMETER DEV NAME(LOC) BV2X.3; GLUCOSE,POINT OF CARE 103 MG/DL (70-110)
[2025-04-01 08:14] VITALS: BP 115/61; PULSE 95; RESP 17; TEMP 97.3; O2SAT 100
[2025-04-01 11:31] LABS: GLUCOMETER DEV NAME(LOC) BV2X.3; GLUCOSE,POINT OF CARE 92 MG/DL (70-110)
[2025-04-01 16:30] LABS: GLUCOMETER DEV NAME(LOC) BV2X.3; GLUCOSE,POINT OF CARE 160 MG/DL (70-110)
[2025-04-01 20:17] VITALS: BP 138/89; PULSE 87; RESP 17; TEMP 97.5; O2SAT 99
[2025-04-01 20:21] LABS: GLUCOMETER DEV NAME(LOC) BV2X.3; GLUCOSE,POINT OF CARE 140 MG/DL (70-110)
[2025-04-02 06:25] LABS: GLUCOMETER DEV NAME(LOC) BV2X.3; GLUCOSE,POINT OF CARE 112 MG/DL (70-110)
[2025-04-02 08:19] VITALS: BP 121/63; PULSE 76; RESP 17; TEMP 98.5; O2SAT 96
[2025-04-02 11:40] LABS: GLUCOMETER DEV NAME(LOC) BV2X.3; GLUCOSE,POINT OF CARE 177 MG/DL (70-110)
[2025-04-02 16:50] LABS: GLUCOMETER DEV NAME(LOC) BV2X.3; GLUCOSE,POINT OF CARE 217 MG/DL (70-110)
[2025-04-02 20:15] VITALS: BP 124/61; PULSE 84; RESP 18; TEMP 97.3; O2SAT 98
[2025-04-02 20:56] LABS: GLUCOMETER DEV NAME(LOC) BV2X.3; GLUCOSE,POINT OF CARE 193 MG/DL (70-110)
[2025-04-03 07:01] LABS: GLUCOMETER DEV NAME(LOC) BV2X.3; GLUCOSE,POINT OF CARE 115 MG/DL (70-110)
[2025-04-03 08:11] VITALS: BP 144/69; PULSE 72; RESP 16; TEMP 97.3; O2SAT 100
[2025-04-03 11:35] LABS: GLUCOMETER DEV NAME(LOC) BV2X.3; GLUCOSE,POINT OF CARE 149 MG/DL (70-110)
[2025-04-03 16:56] LABS: GLUCOMETER DEV NAME(LOC) BV2X.3; GLUCOSE,POINT OF CARE 163 MG/DL (70-110)
[2025-04-03 20:23] VITALS: BP 146/73; PULSE 75; RESP 18; TEMP 98.4; O2SAT 99
[2025-04-03 20:51] LABS: GLUCOMETER DEV NAME(LOC) BV2X.3; GLUCOSE,POINT OF CARE 148 MG/DL (70-110)
[2025-04-04 06:35] LABS: GLUCOMETER DEV NAME(LOC) BV2X.3; GLUCOSE,POINT OF CARE 115 MG/DL (70-110)
[2025-04-04 08:12] VITALS: BP 160/76; PULSE 68; RESP 18; TEMP 97.2; O2SAT 99
[2025-04-04 11:55] LABS: GLUCOMETER DEV NAME(LOC) BV2X.3; GLUCOSE,POINT OF CARE 118 MG/DL (70-110)
[2025-04-04] MEDS ORDERED: MELA5TAB21 PO (12:14)
[2025-04-04] MEDS ORDERED: SERT-158 PO (12:14)
[2025-04-04] MEDS ORDERED: GABA-1181 PO (12:15)
== END 2025-04-04 14:58 | DRG 885 ==
LOC: EMS 21:54 → B2X 03-30 03:14
PROVIDERS: ADMIT Psychiatry & Neurology Psychiatry; ATTEND Psychiatry & Neurology Psychiatry
PROC: GZHZZZZ Group Psychotherapy (ICD-10-PCS; principal; 2025-03-31)
PROC: GZ51ZZZ Individual Psychotherapy, Behavioral (ICD-10-PCS; 2025-03-31)
DX: F25.0 Schizoaffective disorder, bipolar type (principal); F79 Unspecified intellectual disabilities; F03.93 Unspecified dementia, unspecified severity, with mood disturbance; D64.9 Anemia, unspecified; E11.9 Type 2 diabetes mellitus without complications; E78.00 Pure hypercholesterolemia, unspecified; N39.0 Urinary tract infection, site not specified; I10 Essential (primary) hypertension; J44.9 Chronic obstructive pulmonary disease, unspecified; F03.94 Unspecified dementia, unspecified severity, with anxiety; Z20.822 Contact with and (suspected) exposure to COVID-19; N40.0 Benign prostatic hyperplasia without lower urinary tract symptoms; K21.9 Gastro-esophageal reflux disease without esophagitis; G47.00 Insomnia, unspecified; K59.00 Constipation, unspecified; Z72.0 Tobacco use; Z86.73 Personal history of transient ischemic attack (TIA), and cerebral infarction without residual deficits; Z91.148 Patient's other noncompliance with medication regimen for other reason
CPT/HCPCS: 80048; 80053; 80061; 80307; 81001; 82962; 83036; 83735; 84100; 84439; 84443; 85025; 87081; 99285; G0480